=== PATIENT | male | born 1965 | race African-American/Black ===

== ENCOUNTER 2020-06-15 13:04 | Outpatient (REF) | payer OTHER, SELFPAY | END 2020-06-15 13:05 | disposition home or self-care (01) | LOC: HO.LAB 13:04 | PROVIDERS: Visit Provider Internal Medicine | DX: Z20.822 Contact with and (suspected) exposure to COVID-19 (principal) | CPT/HCPCS: 36415; C9803; U0003; U0005 ==

== ENCOUNTER 2020-07-01 07:54 | Outpatient (REF) | payer OTHER, SELFPAY | END 2020-07-01 07:55 | disposition home or self-care (01) | LOC: HO.LAB 07:54 | PROVIDERS: Visit Provider Internal Medicine | DX: Z20.822 Contact with and (suspected) exposure to COVID-19 (principal) | CPT/HCPCS: 36415; C9803; U0003; U0005 ==